=== PATIENT | female | born 1960 | race Caucasian/White ===

== ENCOUNTER 2018-02-11 11:00 | Emergency (ER) | payer MEDICAID ==
[~2018-02-11] VITALS: Ht 157.5 cm; Wt 56.5 kg
[~2018-02-11 11:00] MED LIST: ASPI325T17 PO; ASTHMA MEDICATION
[2018-02-11 11:04] VITALS: BP 148/94
--- NOTE | 2018-02-11 11:28 | NUR ---
PA AT BEDSIDE, PATIENT YELLING, BEING VERBALLY ABUSIVE TOWARDS STAFF. SECURITY NOTIFIED AND AT BEDSIDE.
--- NOTE | 2018-02-11 11:38 | NUR ---
PATIENT ESCALATING, YELLING AT SECURITY/PA. SECURITY ESCORTED PATIENT OUT, PATIENT NOT THREAT TO SELF PER PA. PATIENT AMBULATORY WITH STEADY GAIT TOWARDS DC DESK WITH SECURITY.
== END 2018-02-11 11:43 | disposition left against medical advice (07) ==
LOC: ED 11:25
DX: F29 Unspecified psychosis not due to a substance or known physiological condition (principal); J45.909 Unspecified asthma, uncomplicated; F99 Mental disorder, not otherwise specified
CPT/HCPCS: 99281

== ENCOUNTER 2018-02-20 01:40 | Emergency (ER) | payer MEDICAID ==
[~2018-02-20] VITALS: Ht 157.5 cm; Wt 58.4 kg
[2018-02-20 01:43] VITALS: BP 153/93
== END 2018-02-20 02:37 | disposition home or self-care (01) ==
LOC: ED 02:31
DX: J06.9 Acute upper respiratory infection, unspecified (principal); Z88.1 Allergy status to other antibiotic agents
CPT/HCPCS: 71046; 99283

== ENCOUNTER 2018-06-27 03:28 | Emergency (ER) | payer MEDICAID ==
[~2018-06-27] VITALS: Ht 157.5 cm; Wt 63.1 kg
[2018-06-27 03:33] VITALS: BP 130/98
--- NOTE | 2018-06-27 03:55 | NUR ---
Pt left prior to receiving discharge papers.
== END 2018-06-27 03:57 | disposition home or self-care (01) ==
LOC: ED 03:51
DX: M79.601 Pain in right arm (principal); J45.909 Unspecified asthma, uncomplicated; J45.30 Mild persistent asthma, uncomplicated; F39 Unspecified mood [affective] disorder; Z59.0 Homelessness; Z72.9 Problem related to lifestyle, unspecified
CPT/HCPCS: 99283

== ENCOUNTER 2018-07-20 02:41 | Emergency (ER) | payer MEDICAID ==
[~2018-07-20] VITALS: Ht 157.5 cm; Wt 62.6 kg
[2018-07-20 02:42] VITALS: BP 143/69
--- NOTE | 2018-07-20 02:53 | NUR ---
assessment made. chart up for MD to see.
--- NOTE | 2018-07-20 03:00 | NUR ---
ERP at bedside.
--- NOTE | 2018-07-20 03:20 | NUR ---
X ray done. awaiting result.
--- NOTE | 2018-07-20 04:27 | NUR ---
patient walked out. not waiting for the result of X ray.
== END 2018-07-20 04:34 | disposition left against medical advice (07) ==
LOC: ED 03:01
DX: J06.9 Acute upper respiratory infection, unspecified (principal); B34.9 Viral infection, unspecified; J45.909 Unspecified asthma, uncomplicated; F17.200 Nicotine dependence, unspecified, uncomplicated; Z59.0 Homelessness; Z72.9 Problem related to lifestyle, unspecified; Z98.51 Tubal ligation status; Z98.890 Other specified postprocedural states
CPT/HCPCS: 71045; 99283

== ENCOUNTER 2018-08-26 08:33 | Emergency (ER) | payer MEDICAID ==
[~2018-08-26] VITALS: Ht 157.5 cm; Wt 62.2 kg
--- NOTE | 2018-08-26 08:43 | NUR ---
PT REFUSES EKG AT THIS TIME, EDUCATED ON POC. PT AGITATED AND PERSISTENT REFUSING
--- NOTE | 2018-08-26 09:54 | NUR ---
TO ROOM FROM LOBBY. NAD.
--- NOTE | 2018-08-26 10:10 | NUR ---
AND RN ENTER ROOM. PT YELLING AT MD AND RN "I DON'T WANT TO REPEAT MYSELF, ITS HERE, ITS FROM WHERE I LIVE, THEY'RE GIVING ME ANXIETY AND SICKNESS, I DONT WANT TO BE HERE, I DON'T WANT TO TALK TO YOU", AND RN INSTURCTED PT WE NEED TO ASK QUESTIONS TO TREAT HER. PT CONTINUES TO REFUSE TO ANSWER QUESTIONS AND YELL ABOUT "MY SOCIAL SITUATION IS GIVING ME STRESS". ASSESSMENT ATTEMPTED AND COMPLETED WITH PT REFUSING TO ANSWER QUESTIONS.
[2018-08-26] MEDS ORDERED: ALBUTEROL/IPRATROPIUM 2.5MG/0.5MG, 3 ML NPPB ONE (10:30)
[2018-08-26 11:19] VITALS: BP 120/76
== END 2018-08-26 11:20 | disposition home or self-care (01) ==
LOC: ED 10:10
DX: J45.31 Mild persistent asthma with (acute) exacerbation (principal); R09.02 Hypoxemia; I10 Essential (primary) hypertension
CPT/HCPCS: 94640; 99283; J7512; J7620

== ENCOUNTER 2018-09-02 12:01 | Emergency (ER) | payer MEDICAID ==
[2018-09-02 12:15] VITALS: BP 141/82
[2018-09-02] MEDS ORDERED: ALBUTEROL/IPRATROPIUM 2.5MG/0.5MG, 3 ML ONE (12:49)
[2018-09-02] MEDS ORDERED: ALBUTEROL/IPRATROPIUM 2.5MG/0.5MG, 3 ML NPPB ONE (13:00)
== END 2018-09-02 13:22 | disposition home or self-care (01) ==
LOC: ED 13:14
DX: J20.8 Acute bronchitis due to other specified organisms (principal); F17.200 Nicotine dependence, unspecified, uncomplicated; I10 Essential (primary) hypertension; J45.909 Unspecified asthma, uncomplicated
CPT/HCPCS: 71046; 94640; 99283; J7620